=== PATIENT | male | born 1935 | race Caucasian/White ===

== ENCOUNTER 2017-02-14 19:07 | Emergency (ER) | payer OTHER ==
[~2017-02-14] VITALS: Ht 177.8 cm; Wt 88.5 kg
--- NOTE | 2017-02-14 19:10 | NUR ---
DR. FARLEY IS AT THE BEDSIDE.
--- NOTE | 2017-02-14 19:10 | NUR ---
PT BIB [facility] WITH A C/O [employer] DESIGN MANAGER. PT'S WITNESSED EPISODE AND LOWERED PT TO THE GROUND. PT WAS PLACED ON THE MONITOR AND CONTINUOUS PUSLE OX IN ROOM #5. PT IS AA& O X 4.
--- NOTE | 2017-02-14 19:22 | NUR ---
HELADIO COSTA FOR DRAW.
--- NOTE | 2017-02-14 19:24 | NUR ---
LAB IS AT THE BEDSIDE FOR DRAW.
[2017-02-14] MEDS ORDERED: IV SET PRIMARY 1 EA INFUS.SET MC ONE ×3 (19:27→21:28)
[2017-02-14] MEDS ORDERED: IV NS 0.9% 1,000 ML ONE (19:27)
[2017-02-14] MEDS ORDERED: IV NS 0.9% 1,000 ML BAG IV ONE ×2 (19:30→21:30)
[2017-02-14 19:31] LABS: BASOPHILS % (AUTO) 0.1 % (0.0-2.0); EOSINOPHILS # (AUTO) 0.1 /CMM (0.0-0.7); EOSINOPHILS % (AUTO) 0.6 % (0.0-6.0); HEMATOCRIT 58 % (39-51); LYMPHOCYTES # (AUTO) 1.4 /CMM (0.8-4.8); MEAN CORPUSCULAR HEMOGLOBIN 31 PG (26.0-33.0); MEAN CORPUSCULAR HGB CONC 34 g/dl (31.0-36.0); MEAN CORPUSCULAR VOLUME 89 fL (80-96); MONOCYTES # (AUTO) 0.8 /CMM (0.1-1.30); MONOCYTES % (AUTO) 4.6 % (2.0-12.0); NEUTROPHILS # (AUTO) 15.5 /CMM (1.8-8.9); NEUTROPHILS % (AUTO) 86.7 % (43.0-81.0); PLATELET COUNT (AUTO) 334 /CMM (150-450); RED BLOOD CELL COUNT(AUTO) 6.51 MIL/uL (4.5-6.0); WHITE BLOOD COUNT (AUTO) 17.8 K/uL (4.3-11.0)
[2017-02-14 19:33] LABS: HEMOGLOBIN 19.8 g/dL (13.5-17.5)
[2017-02-14 19:44] LABS: CALCIUM, SERUM 10.1 mg/dL (8.5-10.1); CARBON DIOXIDE 27 mmol/L (21-32); CHLORIDE 100 mmol/L (98-107); GLUCOSE 192 mg/dL (74-106); POTASSIUM 5.3 mmol/L (3.5-5.1); SODIUM SERUM 133 mmol/L (136-145); UREA NITROGEN, BLOOD 28 mg/dL (7-18)
[2017-02-14 19:45] LABS: INR 1.06 (0.87-1.13)
[2017-02-14 19:50] LABS: ALANINE AMINOTRANSFERASE 81 U/L (12-78); ALBUMIN 4.4 g/dL (3.4-5.0); ALKALINE PHOSPHATASE 67 U/L (46-116); ASPARTATE AMINOTRANSFERASE 54 U/L (15-37); BILIRUBIN,DIRECT 0.3 mg/dL (0.0-0.2); BILIRUBIN,TOTAL 1.8 mg/dL (0.2-1.0); TOTAL PROTEIN, SERUM 8.3 g/dL (6.4-8.2)
[2017-02-14 19:52] LABS: TROPONIN I < 0.017 ng/mL (0.00-0.056)
--- NOTE | 2017-02-14 19:56 | NUR ---
LAB IS AT THE BEDSIDE FOR BLOOD CULTURE DRAW.
--- NOTE | 2017-02-14 20:00 | NUR ---
PT LEFT FOR CT.
--- NOTE | 2017-02-14 20:00 | NUR ---
UNABLE TO OBTAIN URINE SAMPLE AT THIS TIME.
[2017-02-14] MEDS ORDERED: LIDOCAINE 2% JEL UROJET 10 ML MM ONE ×2 (20:43→21:00)
--- NOTE | 2017-02-14 20:55 | NUR ---
CALLED [facility], PRESENTED PT, AWAITING CALL BACK FROM [facility]
[2017-02-14] MEDS ORDERED: MORPHINE SULFATE INJ 4 MG/ML DISP.SYRIN ONE (20:58)
[2017-02-14] MEDS ORDERED: ONDANSETRON HCL/PF 4 MG/2 ML VIAL ONE (20:58)
[2017-02-14] MEDS ORDERED: CEFTRIAXONE 1GM BAG (ER ONLY) 1 GM/50 ML PIGGYBACK IV ONE (21:00)
[2017-02-14] MEDS ORDERED: ONDANSETRON HCL/PF 4 MG/2 ML VIAL IV ONE (21:00)
[2017-02-14] MEDS ORDERED: METRONIDAZOLE 500MG/ NS 100ML 500 MG in PREMIX 1 EA IV SCH (21:00)
[2017-02-14] MEDS ORDERED: MORPHINE SULFATE INJ 2 MG/ML DISP.SYRIN IV ONE (21:00)
[2017-02-14 21:01] LABS: APPEARANCE,URINE Clear (CLEAR); BILIRUBIN,URINE Negative (NEGATIVE); BLOOD, URINE Negative Ery/uL (NEGATIVE); COLOR,URINE Yellow (YELLOW); KETONES,URINE Negative (NEGATIVE); LEUKOCYTE ESTERASE ,URINE Negative (NEGATIVE); NITRITE, URINE Negative (NEGATIVE); PH,URINE 5.5 (5.0-8.0); PROTEIN,URINE 100 mg/dl (NEGATIVE); UGLUCOSE Negative (NEGATIVE); UROBILINOGEN,URINE 0.2 EU/dL (0.2)
--- NOTE | 2017-02-14 21:05 | NUR ---
PT REFUSED MORPHINE AND ZOFRAN AT THIS TIME. PT WANTS TO WAIT FOR NGT INSERTION UNTIL HE SPEAKS TO THE
[2017-02-14] MEDS ORDERED: CEFTRIAXONE 1GM BAG (ER ONLY) 50 ML IV ONE (21:09)
--- NOTE | 2017-02-14 21:13 | NUR ---
CALLED (PODOPEDIATRICIAN SURGEON), TRANSFERRED CALL TO DR. FARLEY
--- NOTE | 2017-02-14 21:16 | NUR ---
DR. FARLEY IS SPEAKING TO THE PT.
[2017-02-14] MEDS ORDERED: IV NS 0.9% 2,000 ML ONE (21:28)
[2017-02-14] MEDS ORDERED: IV SET PRIMARY PUMP SET 1 EA INFUS.SET MC ONE (21:28)
[2017-02-14] MEDS ORDERED: METRONIDAZOLE 500MG/ NS 100ML 100 ML IV ONE (21:28)
--- NOTE | 2017-02-14 21:28 | NUR ---
NGT INSERTED AND APPROX 200 ML PINK TINGED FLUID OUTPUT NOTED. PT CONNECTED TO LOW INTERMITTENT SUCTIONING.
--- NOTE | 2017-02-14 21:34 | NUR ---
PT'S SON ARRIVED.
--- NOTE | 2017-02-14 21:36 | NUR ---
DR. FARLEY IS AT THE BEDSIDE SPEAKING TO THE PT'S SON.
--- NOTE | 2017-02-14 22:08 | NUR ---
PT APPEARS TO BE RESTING COMFORTABLY WITH NO S/S OF PAIN OR DISTRESS.
[2017-02-14 22:17] VITALS: BP 162/107
--- NOTE | 2017-02-14 22:20 | NUR ---
RECEIVED CALL BACK FROM [facility], PT IS GOING TO [facility] ER, ACCEPTED BY , NUMBER TO GIVE REPORT IS [phone], [facility] SHOULD ARRIVE BY [phone]
--- NOTE | 2017-02-14 22:26 | NUR ---
1000L OUTPUT FROM NGT. PT STATED THAT HE FEELS MUCH BETTER.
--- NOTE | 2017-02-14 22:27 | NUR ---
CALLING REPORT TO [facility]INIC
--- NOTE | 2017-02-14 23:16 | NUR ---
PT APPEARS TO BE RESTING COMFORTABLY WITH NO S/S OF PAIN/ DISTRESS.
--- NOTE | 2017-02-14 23:51 | NUR ---
[facility] EMT'S ARRIVED. REPORT GIVEN.
== END 2017-02-14 23:52 ==
LOC: ER 19:10
DX: K56.60 Unspecified intestinal obstruction (principal); A41.9 Sepsis, unspecified organism; R55 Syncope and collapse; I10 Essential (primary) hypertension; E11.9 Type 2 diabetes mellitus without complications; Z88.8 Allergy status to other drugs, medicaments and biological substances
CPT/HCPCS: 36415; 71010-TC; 80048-TC; 80076-TC; 81000-TC; 82962-TC; 83605-TC; 84484-TC; 85025-TC; 85730-TC; 87040-TC; 87086-TC; A4216; A4606; J0696; J2270; J2405; J3490; J7030; Z7610

== ENCOUNTER 2025-03-23 01:30 | Emergency (ER) | payer OTHER ==
[~2025-03-23] VITALS: Ht 177.8 cm; Wt 81.6 kg
[2025-03-23 01:38] VITALS: BP 153/82; TEMP 98.8; O2SAT 97
[2025-03-23 02:35] LABS: BASOPHILS # (AUTO) 0.1 K/uL (0.0-0.2); BASOPHILS % (AUTO) 0.5 % (0.0-2.0); EOSINOPHILS # (AUTO) 0.3 K/uL (0.0-0.7); EOSINOPHILS % (AUTO) 1.9 % (0.0-6.0); HEMATOCRIT 53 % (39-51); HEMOGLOBIN 17.4 g/dL (13.5-17.5); LYMPHOCYTES # (AUTO) 1.7 K/uL (0.8-4.8); LYMPHOCYTES % (AUTO) 9.7 % (20.0-44.0); MEAN CORPUSCULAR HEMOGLOBIN 30 PG (26.0-33.0); MEAN CORPUSCULAR HGB CONC 33 g/dl (31.0-36.0); MEAN CORPUSCULAR VOLUME 92 fL (80-96); MONOCYTES # (AUTO) 1.9 K/uL (0.1-1.30); MONOCYTES % (AUTO) 10.7 % (2.0-12.0); NEUTROPHILS # (AUTO) 13.4 K/uL (1.8-8.9); NEUTROPHILS % (AUTO) 77.2 % (43.0-81.0); PLATELET COUNT (AUTO) 222 K/uL (150-450); RED BLOOD CELL COUNT(AUTO) 5.75 MIL/uL (4.5-6.0); WHITE BLOOD COUNT (AUTO) 17.3 K/uL (4.3-11.0)
[2025-03-23 02:45] LABS: CALCIUM, SERUM 10.5 mg/dL (8.5-10.1); CREATININE 1.6 mg/dL (0.6-1.3); POTASSIUM 4.6 mmol/L (3.5-5.1)
[2025-03-23 02:57] LABS: TOTAL PROTEIN, SERUM 7.6 g/dL (6.4-8.2)
[2025-03-23 04:35] LABS: APPEARANCE,URINE CLEAR (CLEAR); BILIRUBIN,URINE NEGATIVE (NEGATIVE); BLOOD, URINE NEGATIVE Ery/uL (NEGATIVE); COLOR,URINE YELLOW (YELLOW); KETONES,URINE NEGATIVE (NEGATIVE); LEUKOCYTE ESTERASE ,URINE NEGATIVE (NEGATIVE); NITRITE, URINE NEGATIVE (NEGATIVE); PROTEIN,URINE 1+ mg/dl (NEGATIVE); UGLUCOSE NEGATIVE (NEGATIVE); UROBILINOGEN,URINE 0.2 EU/dL (0.2)
[2025-03-23 04:42] LABS: ADD URINE CULTURE NO; BACTERIA,URINE Few /HPF (None Seen); RBC,URINE 0-2 /HPF (0-2); SQUAMOUS EPITHELIAL CELL,UR Few /HPF (None Seen); WBC,URINE 0-2 /HPF (0-3)
[2025-03-23 04:44] LABS: LACTIC ACID 1.2 mmol/L (0.4-2.0)
== END 2025-03-23 07:08 | disposition short-term general hospital (02) ==
LOC: ER 01:32
DX: R07.89 Other chest pain (principal); R06.02 Shortness of breath; I11.9 Hypertensive heart disease without heart failure; E11.9 Type 2 diabetes mellitus without complications; I25.10 Atherosclerotic heart disease of native coronary artery without angina pectoris; I25.2 Old myocardial infarction
CPT/HCPCS: 36415; 71045-TC; 71250-TC; 80053-TC; 81001; 83605-TC; 83690-TC; 83880; 84484-TC; 85025-TC